=== PATIENT | male | born 1960 | race Caucasian/White ===

== ENCOUNTER 2017-01-28 13:31 | Emergency (ER) | payer MEDICAID, SELFPAY ==
[~2017-01-28] VITALS: Ht 185.4 cm; Wt 85.0 kg
[2017-01-28 13:34] VITALS: BP 127/80
== END 2017-01-28 14:43 | disposition home or self-care (01) ==
LOC: ED 14:20
DX: J02.0 Streptococcal pharyngitis (principal)
CPT/HCPCS: 99283